=== PATIENT | male | born 1955 | race Caucasian/White ===

== ENCOUNTER → 2018-12-19 | Day surgery (SDC) | payer OTHER ==
[~2018-12-19] MED LIST: ALBU2.5V8 INH; FLUT1DIS IH; FLUT9.9S NS; LIDOCAINE 1% PF 2 ML VIAL. ID PRN; MIDAZOLAM HCL/PF 2 MG/2 ML VIAL. IV PRN; PROPOFOL 20 ML IV ONE; fentaNYL PF VIAL 100 MCG/2 ML VIAL IV PRN
[2018-12-19] MEDS: IV RINGERS,LACTATED 1000ML 1,000 ML IV SCH ×2 (08:31→08:34)
[2018-12-19 09:32] VITALS: BP 152/99
== END | disposition home or self-care (01) ==
LOC: SURG 06:35
PROVIDERS: ATTEND Internal Medicine Gastroenterology
DX: Z12.11 Encounter for screening for malignant neoplasm of colon (principal); K64.0 First degree hemorrhoids; J45.909 Unspecified asthma, uncomplicated; M19.90 Unspecified osteoarthritis, unspecified site; Z72.0 Tobacco use; Z79.899 Other long term (current) drug therapy
CPT/HCPCS: 45378; J2704